=== PATIENT | female | born 1935 | race Asian ===

== ENCOUNTER 2022-01-13 04:10 | Inpatient (IN) | payer OTHER ==
[~2022-01-13] VITALS: Ht 162.6 cm; Wt 58.1 kg
[2022-01-13 04:18] VITALS: BP 170/90
--- NOTE | 2022-01-13 04:18 | NUR ---
PT TAKEN TO 1 VIA JJ
--- NOTE | 2022-01-13 04:50 | NUR ---
Attempted to contact Greek credit relationship manager on IPAD, but informed by IPAD tractor trailer operator that Greek credit relationship manager was "not available." AM shift nurse Zeke RN stated he "will attempt to contact Greek credit relationship manager with IPAD for ER Physician."
[2022-01-13] MEDS: hydrALAZINE 20 MG/ML VIAL IM ONE (04:59)
[2022-01-13 05:19] LABS: BASOPHILS % (AUTO) 0.7 % (0.0-2.0); EOSINOPHILS # (AUTO) 0.1 K/uL (0-0.4); EOSINOPHILS % (AUTO) 1.2 % (0.0-4.0); HEMATOCRIT 40.9 % (36-48); HEMOGLOBIN 13.5 g/dL (12.0-16.0); LYMPHOCYTES # (AUTO) 1.2 K/uL (2.5-16.5); LYMPHOCYTES % (AUTO) 20.7 % (20.5-51.1); MEAN CORPUSCULAR HEMOGLOBIN 32 pg (27-31); MEAN CORPUSCULAR HGB CONC 33 g/dL (33-37); MEAN CORPUSCULAR VOLUME 95.7 fL (80-94); MONOCYTES # (AUTO) 0.4 K/uL (0.8-1.0); MONOCYTES % (AUTO) 7.5 % (1.7-9.3); NEUTROPHILS # (AUTO) 4.2 K/uL (1.8-7.7); NEUTROPHILS % (AUTO) 69.9 % (42.2-75.2); PLATELET COUNT (AUTO) 218 K/uL (140-450); RED BLOOD CELL COUNT(AUTO) 4.28 MIL/uL (4.20-5.40); RED CELL DISTRIBUTION WIDTH 13.5 % (11.6-13.7); WHITE BLOOD COUNT (AUTO) 5.9 K/uL (4.8-10.8)
--- NOTE | 2022-01-13 07:17 | NUR ---
Change of shift report given to AM shift nurse Zeke JUAREZ. AM shift nurse Zeke JUAREZ verbalized understanding of report, no further questions.
--- NOTE | 2022-01-13 07:32 | NUR ---
received report from killian modi. pt calm and resting. vital stable.
--- NOTE | 2022-01-13 07:59 | NUR ---
xr at bedside
[2022-01-13 08:07] LABS: ALBUMIN 4.4 g/dL (3.4-5.0); ANION GAP 18.3 (8-16); ASPARTATE AMINOTRANSFERASE 35 U/L (15-37); CARBON DIOXIDE 25.2 mmol/L (21-32); CHLORIDE 101 mmol/L (98-107); CREATININE 0.8 mg/dL (0.6-1.3); GLUCOSE 115 mg/dL (74-106); POTASSIUM 4.5 mmol/L (3.5-5.1); SODIUM SERUM 140 mmol/L (136-145); TOTAL BILIRUBIN 0.6 mg/dL (0.0-1.0); UREA NITROGEN, BLOOD 37 mg/dL (7-18)
--- NOTE | 2022-01-13 08:15 | NUR ---
princess collected and sent to lab
[2022-01-13 08:51] LABS: APPEARANCE,URINE HAZY (CLEAR); BILIRUBIN,URINE NEGATIVE (NEGATIVE); BLOOD, URINE NEGATIVE (NEGATIVE); COLOR,URINE AMBER (YELLOW); LEUKOCYTE ESTERASE ,URINE 1+ (NEGATIVE); NITRITE, URINE NEGATIVE (NEGATIVE); UGLUCOSE NEGATIVE (NEGATIVE)
[2022-01-13] MEDS ORDERED: ATOR20TA PO (09:08)
[2022-01-13] MEDS ORDERED: ROC.25 PO (09:08)
[2022-01-13] MEDS ORDERED: CARB1TAB40 PO ×2 (09:08)
[2022-01-13] MEDS ORDERED: RASA0.5T PO (09:14)
[2022-01-13] MEDS ORDERED: ATI.5 PO (09:14)
[2022-01-13] MEDS ORDERED: PANT40EC PO (09:14)
[2022-01-13] MEDS ORDERED: ZINC100T8 PO (09:14)
[2022-01-13] MEDS ORDERED: SENN-72 PO (09:14)
[2022-01-13] MEDS ORDERED: LISI5TAB18 PO (09:14)
[2022-01-13] MEDS ORDERED: SIME80TA22 PO (09:14)
[2022-01-13] MEDS ORDERED: DOCU-2 PO (09:14)
[2022-01-13] MEDS ORDERED: LEVO25CA2 PO (09:14)
[2022-01-13] MEDS ORDERED: HYD2.5O TP (09:14)
[2022-01-13 09:24] LABS: RBC,URINE 0-5 /HPF (0-5)
[2022-01-13] MEDS ORDERED: cefTRIAXone 1,000 MG VIAL ONE (09:24)
[2022-01-13 09:26] LABS: OTHER CASTS, URINE None Seen /LPF (None Seen)
[2022-01-13] MEDS ORDERED: ZOLPIDEM 5 MG TAB PO PRN (09:30)
[2022-01-13] MEDS ORDERED: ONDANSETRON 4 MG/2 ML VIAL IM/IVP PRN (09:30)
[2022-01-13] MEDS ORDERED: guaiFENesin DM 200/20 MG-10 ML 10 ML UDC PO PRN (09:30)
[2022-01-13] MEDS ORDERED: NITROGLYCERIN 0.4 MG TAB SL PRN (09:30)
[2022-01-13] MEDS ORDERED: POTASSIUM CHLORIDE 10 MEQ TABER PO PRN (09:30)
[2022-01-13] MEDS ORDERED: DOCUSATE SODIUM 100 MG GELCAP PO PRN (09:30)
[2022-01-13] MEDS ORDERED: ACETAMINOPHEN 325 MG TAB PO PRN (09:30)
[2022-01-13] MEDS: NACL 0.9% 1,000 ML IV SCH (09:36)
--- NOTE | 2022-01-13 09:43 | NUR ---
[facility] CALLED. PER JAX, PT IS A RESIDENCE AT [facility] NURSE VISITS THE FACILITY FOR HOSPICE CARE AT [facility]. CONTACT INFO FOR VIC [facility]ARA: [phone]
[2022-01-13 10:33] LABS: CHOL/HDL RATIO 2.6 (1-4.5); FREE T4 (FREE THYROXINE) 1.16 ng/dL (0.76-1.46); MAGNESIUM 2.4 mg/dL (1.8-2.4); PHOSPHORUS 4.3 mg/dL (2.5-4.9); THYROID STIMULATING HORMONE 1.96 uIU/mL (0.34-3.74)
[2022-01-13 10:43] LABS: PROTHROMBIN TIME 10.1 secs (10.8-13.4)
--- NOTE | 2022-01-13 12:02 | NUR ---
MEAL PROVIDED TO PATIENT. PATIENT TOLERATING PO WELL.
[2022-01-13] MEDS ORDERED: LEVODOPA PO SCH (13:00)
[2022-01-13] MEDS ORDERED: CARBIDOPA PO SCH (13:00)
[2022-01-13] MEDS: CARBIDOPA/LEVODOPA 25/250 MG 1 TAB PO SCH (14:09)
--- NOTE | 2022-01-13 18:48 | NUR ---
meal provided to patient. pt refused to eat at this time. tray placed near bedside
--- NOTE | 2022-01-13 22:05 | NUR ---
CRITICAL LAB FOR LACTIC ACID ENTERED WAS UNDON
--- NOTE | 2022-01-14 | NUR ---
Patient appears to be resting comfortably in bed. Vital Signs within normal limits. Respirations even and unlabored.
--- NOTE | 2022-01-14 02:00 | NUR ---
Patient appears to be resting comfortably in bed. Vital Signs within normal limits. Respirations even and unlabored.
--- NOTE | 2022-01-14 03:10 | NUR ---
REPORT RECIEVED FROM GREG JUAREZ
[2022-01-14] MEDS: NACL 0.9% 1,000 ML IV SCH ×2 (03:26→12:00)
[2022-01-14] MEDS: CARBIDOPA/LEVODOPA 25/250 MG 1 TAB PO SCH ×4 (05:00→22:00)
--- NOTE | 2022-01-14 05:26 | NUR ---
SINEMENT NOT AVAIL IN DEPT OR HOUSE ; WAS NOTIFED AND NO RESPONSE BACK
--- NOTE | 2022-01-14 06:00 | NUR ---
LAB AT BEDSIDE AM LABS. PT IN BED ON BEDSIDE MONITOR. SIDE RAILS UP X2. BED AT LOWEST POSITION
[2022-01-14 07:08] LABS: T4 (THYROXINE) 7.7 ug/dL (4.5-12.0)
--- NOTE | 2022-01-14 07:08 | NUR ---
PT RESTING IN BED RESP EVEN AND UNLABORED
[2022-01-14 07:12] LABS: BASOPHILS % (AUTO) 0.4 % (0.0-2.0); EOSINOPHILS # (AUTO) 0.1 K/uL (0-0.4); EOSINOPHILS % (AUTO) 1.2 % (0.0-4.0); HEMATOCRIT 41.4 % (36-48); HEMOGLOBIN 13.4 g/dL (12.0-16.0); LYMPHOCYTES # (AUTO) 1.6 K/uL (2.5-16.5); LYMPHOCYTES % (AUTO) 24.6 % (20.5-51.1); MEAN CORPUSCULAR HEMOGLOBIN 31 pg (27-31); MEAN CORPUSCULAR HGB CONC 32 g/dL (33-37); MEAN CORPUSCULAR VOLUME 96.6 fL (80-94); MONOCYTES # (AUTO) 0.9 K/uL (0.8-1.0); MONOCYTES % (AUTO) 13.5 % (1.7-9.3); NEUTROPHILS % (AUTO) 60.3 % (42.2-75.2); PLATELET COUNT (AUTO) 224 K/uL (140-450); RED BLOOD CELL COUNT(AUTO) 4.29 MIL/uL (4.20-5.40); RED CELL DISTRIBUTION WIDTH 13.8 % (11.6-13.7); WHITE BLOOD COUNT (AUTO) 6.6 K/uL (4.8-10.8)
--- NOTE | 2022-01-14 07:21 | NUR ---
PT CALM AND SLEEPING. VITALS STABLE
[2022-01-14 07:31] LABS: ANION GAP 12.4 (8-16); CARBON DIOXIDE 29.1 mmol/L (21-32); CHLORIDE 110 mmol/L (98-107); CREATININE 0.5 mg/dL (0.6-1.3); GLUCOSE 94 mg/dL (74-106); POTASSIUM 4.5 mmol/L (3.5-5.1); SODIUM SERUM 147 mmol/L (136-145); UREA NITROGEN, BLOOD 14 mg/dL (7-18)
[2022-01-14] MEDS ORDERED: ATORVASTATIN 20 MG TAB PO SCH (09:00)
[2022-01-14] MEDS ORDERED: cefTRIAXone 1,000 MG VIAL ONE (09:06)
[2022-01-14] MEDS: lisinopriL 5 MG TAB PO SCH (09:07)
[2022-01-14] MEDS: PANTOPRAZOLE 40 MG TABEC PO SCH (09:07)
--- NOTE | 2022-01-14 09:24 | NUR ---
PT BP 76/34. PT STILL REFUSING TO EAT. REPEAT BP CONSISTENTLY LOW. DR PUCKETT NOTIFIED. ON ROOM AIR, NSR, DENIES ANY PAIN. PT IS SLEEPING BUT AROUSABLE TO VOICE
[2022-01-14] MEDS ORDERED: NACL 0.9% 2,000 ML IV ONE (09:35)
--- NOTE | 2022-01-14 11:10 | NUR ---
PATIENT HAS BEEN SCREENED AND CATEGORIZED HIGH NUTRITION RISK. PATIENT WILL BE SEEN WITHIN 1-2 DAYS OF ADMISSION. 01/14/[address]
--- NOTE | 2022-01-14 11:35 | NUR ---
PT SLEEPING. VSS
[2022-01-14] MEDS: hydrALAZINE 20 MG/ML VIAL IVP PRN ×2 (12:06→22:12)
--- NOTE | 2022-01-14 12:11 | NUR ---
MEAL PROVIDED. PT REQUEST TO EAT LATER
--- NOTE | 2022-01-14 14:52 | NUR ---
PT ATE TOMATO SOUP
--- NOTE | 2022-01-14 15:58 | NUR ---
01/14/22 RD FOLLOW UP COMPLETED PLEASE REFER TO NUTRITION ASSESSMENT UNDER CARE ACTIVITY FOR ESTIMATED NUTRITIONAL NEEDS. 1. CONTINUE REGULAR PUREE DIET TOLERATED 2. RECOMMEND ENSURE BID FOR NUTRITION SUPPORT 3. MONITOR PO INTAKE 4. RD TO FOLLOW-UP 2-3 DAYS, HIGH RISK CELIA HERNADEZ RD
--- NOTE | 2022-01-14 16:27 | NUR ---
PT GIVEN PHONE.
--- NOTE | 2022-01-14 18:09 | NUR ---
patient eating meal
--- NOTE | 2022-01-14 19:20 | NUR ---
recieved transfer report from rian arreola
--- NOTE | 2022-01-14 20:14 | NUR ---
Patient will be admitted to care of DR PUCKETT. Admited to ICU. Will go to room 2. Belongings list completed. Report to ANN RODARTE.
[2022-01-14] MEDS: HYDROcodone/APAP 7.5/325 MG 1 TAB PO PRN (22:00)
[2022-01-14 22:10] VITALS: BP 187/101
[2022-01-14 22:50] VITALS: BP 187/101
[2022-01-15] VITALS (8 sets, daily range): BP systolic 109–187; BP diastolic 78–96
--- NOTE | 2022-01-15 02:00 | NUR ---
PT AWAKENED IN A VERY CONFUSED STATE OF MIND. SHE IS PULLING AT HER IVACCESS AND FIGHTING THE NURSE TO PREVENT HER SALVAGING THE IV. FINALLY SUBDUED WITH THE ASSISTANCE OF A SECOND RN. SITE RETAPED AND KERLIX WRAPPED TO PREVENT A REOCCURRENCE. A MITTEN WAS APPLIED TO THE LEFT HAND. S/P IV STRUGGLE PT BEGAN TO COMPLAIN OF PAIN. SHE CLEARLY STATED THE PAIN LEVEL WAS 6 AND IT'S IN HER NECK AGAIN.NORCO7.5MG GIVEN IN APPLESAUCE
[2022-01-15] MEDS: HYDROcodone/APAP 7.5/325 MG 1 TAB PO PRN ×2 (02:56→10:29)
--- NOTE | 2022-01-15 04:15 | NUR ---
BLOOD PRESSURE UP AGAIN SYS WAS 179, RECYCLED UP TO 183/100. A SECOND DOSE OF APRESOLINE 10 MG GIVEN. THE RESPONSE WAS POSITIVE. THE BP IS NOW 148/82. SHE ALSO HAD THE NORCO HER PAIN IS CONTROLLED AT THIS TIME ANS SHE'S ASLEEP.
[2022-01-15] MEDS: hydrALAZINE 20 MG/ML VIAL IVP PRN ×2 (04:20→09:52)
[2022-01-15 06:09] LABS: BASOPHILS % (AUTO) 0.6 % (0.0-2.0); EOSINOPHILS # (AUTO) 0.3 K/uL (0-0.4); HEMATOCRIT 39.9 % (36-48); HEMOGLOBIN 13.4 g/dL (12.0-16.0); LYMPHOCYTES # (AUTO) 1.7 K/uL (2.5-16.5); MEAN CORPUSCULAR HEMOGLOBIN 32 pg (27-31); MEAN CORPUSCULAR HGB CONC 34 g/dL (33-37); MEAN CORPUSCULAR VOLUME 96.2 fL (80-94); MONOCYTES # (AUTO) 0.6 K/uL (0.8-1.0); MONOCYTES % (AUTO) 7.5 % (1.7-9.3); NEUTROPHILS # (AUTO) 4.8 K/uL (1.8-7.7); NEUTROPHILS % (AUTO) 64.9 % (42.2-75.2); PLATELET COUNT (AUTO) 283 K/uL (140-450); RED BLOOD CELL COUNT(AUTO) 4.15 MIL/uL (4.20-5.40); RED CELL DISTRIBUTION WIDTH 13.8 % (11.6-13.7); WHITE BLOOD COUNT (AUTO) 7.4 K/uL (4.8-10.8)
[2022-01-15 07:04] LABS: ANION GAP 11.8 (8-16); CARBON DIOXIDE 27.6 mmol/L (21-32); CHLORIDE 107 mmol/L (98-107); CREATININE 0.5 mg/dL (0.6-1.3); GLUCOSE 100 mg/dL (74-106); POTASSIUM 3.4 mmol/L (3.5-5.1); SODIUM SERUM 143 mmol/L (136-145); UREA NITROGEN, BLOOD 9 mg/dL (7-18)
--- NOTE | 2022-01-15 07:30 | NUR ---
REPORT RECEIVED FROM ARMORED MACHINE OPERATOR MILIEU THERAPIST.
--- NOTE | 2022-01-15 08:30 | NUR ---
PATIENT OPENS EYES TO VERBAL STIMULI. ORIENTED TO PERSON. MOVES ALL EXTREMITIES. VSS. HEART SOUNDS REGULAR. MONITOR SR-ST. RIGHT ARM IV INFILTRATED, DC'D. #24G IV PLACED IN RIGHT WRIST. IV NS AT 60CC/HR. ANTERIOR LATERAL BREATH SOUNDS DIMINISHED AT BILATERAL BASES. SAO2 96% ON RA. HYPOACTIVE BOWEL SOUNDS. ABDOMEN SOFT. INCONTINENT OF URINE.
--- NOTE | 2022-01-15 08:47 | NUR ---
PT. WITH LOW NISHI SCALE AT MODERATE TO HIGH RISK, CONTINUE TO FOLLOW PRESSURE INJURY PREVENTION INTERVENTIONS. -POSITIONING: TURN AND REPOSITION PATIENT Q 2H OR SOONER USE PILLOWS TO KEEP BONY PROMINENCES FROM DIRECT CONTACT WITH SURFACES USE REPOSITIONING WEDGES TO PROVIDE 30-DEGREE ANGLE FOR SIDE LYING POSITIONS OFFLOADING OR FOAM DRESSING TO ALL TUBING TO PREVENT MEDICAL DEVICES RELATED PRESSURE INJURY -RE-EVALUATING AND MANAGING INCONTINENCE MONITOR SKIN CONDITION DURING POSITION CHANGE DO NOT MASSAGE REDNESS, BONY PROMINENCES FREQUENT RINA-CARE AND PROVIDE BARRIER CREAMS PRN IF SOILING MOISTURE CONTROL BY OFFER BED SIM/URINAL /ABSORBENT PAD TO WICK AND HOLD MOISTURE KEEP SKIN DRY AND PROTECT FROM FRICTION -MANAGE FRICTION/SHEAR/MOBILITY KEEP HOB AT THE LOWEST LEVEL OF ELEVATION NO MORE THAN 30 DEGREE UNLESS OTHERWISE CONTRAINDICATED USE LIFT SHEET OR TRANSFER DEVICE TO MOVE PATIENT AND PREVENT LATERAL SHEER. PROTECT HEELS, ELBOWS BONY PROMINENCES WITH SKIN BERRIES OR FOAM DRESSING IF EXPOSED TO FRICTION OFFLOAD BILATERAL HEELS BY PLACING PILLOWS UNDER CALVES AT ALL TIMES, UNLESS OTHERWISE CONTRAINDICATED -PRESSURE REDISTRIBUTION SURFACE THERAPY LUZ ISOFLEX MATTRESS -NUTRITION: PLEASE FOLLOW RD RECOMMENDATIONS AND OFFER NUTRITION SUPPLEMENTS IF ORDERED. PLEASE CONTACT WOUND CARE NURSE FOR ANY QUESTION AND CHANGE OF WOUND CONDITION.
[2022-01-15] MEDS: PANTOPRAZOLE 40 MG TABEC PO SCH (09:00)
[2022-01-15] MEDS: lisinopriL 5 MG TAB PO SCH (09:00)
[2022-01-15] MEDS: CARBIDOPA/LEVODOPA 25/250 MG 1 TAB PO SCH ×2 (09:46→13:15)
--- NOTE | 2022-01-15 10:30 | NUR ---
NORCO 1 TAB GIVEN FOR COMPLAINT OF NECK PAIN.
--- NOTE | 2022-01-15 11:15 | NUR ---
REPORT GIVEN TO ANN FRANCOIS ON MST. PATIENT TRANSFERRED BY BED.
--- NOTE | 2022-01-15 11:30 | NUR ---
RECEIVED REPORT FROM [employer]RE[facility] CADET. PT A/O X1 TO NAME ONLY. CONFUSED. HOB ELEVATED. NO SOB OR RESPIRATORY DISTRESS. ON RA. DENIES PAIN AT THIS TIME. NS @ 60 ML/HR ON R WRIST #24. ON PUREED, FEEDER. NEEDS ALL MET AT THIS TIME. PLAN TO TRANSFER TO [facility]. SAFETY MEASURES IN PLACE.
[2022-01-15] MEDS ORDERED: SULF-954 PO (11:43)
[2022-01-15] MEDS ORDERED: POTASSIUM CHLORIDE 40 MEQ, LIDOCAINE MPF 1% 25 MG in NACL 0.9% 250 ML IV ONE (12:00)
[2022-01-15] MEDS: NACL 0.9% 1,000 ML IV SCH (12:08)
--- NOTE | 2022-01-15 14:00 | NUR ---
SPOKE WITH CASE MANAGEMENT RINA AND STATES PT IS TRANSPORTING BACK TO [facility] AND STATES [facility] WILL SETUP TRANSPORTATION. SPOKE WITH LINDA FROM [facility] AND HE STATES THEY DO NOT PROVIDE TRANSPORTATION AFTER 1300. CONTACTED CM AND TOLD TO CALL [facility]. CALLED [facility] AND THEY STATED TO CALL BACK. WILL FOLLOWUP.
--- NOTE | 2022-01-15 14:05 | NUR ---
REPORT GIVEN TO LINDA FROM [facility]. Addendum: 01/15/22 at 1843 by Agency Wilber JUAREZ RN REPORT GIVEN TO LINDA FROM [facility]
--- NOTE | 2022-01-15 15:55 | NUR ---
PT TRYING TO GET OUT OF BED. EXPLAINED TO PT TO STAY IN BED. AND ASSISTED BACK IN BED. PT WITH WET CHUCKS. PT CHANGED AND REPOSITIONED. PT DENIES PAIN. NO SOB NOTED. NEEDS ALL MET AT THIS TIME. SAFETY MEASURES IN PLACE. SIDE RAILS UP X3 FOR SAFETY. CONTACTED TRANSPORTATION AND STATES PICKUP IS AT 1830.
--- NOTE | 2022-01-15 18:00 | NUR ---
CONTACTED [facility] AND THEY STATE THEY ARE ON THEIR WAY. AWAITING TRANSPORTATION.
--- NOTE | 2022-01-15 18:44 | NUR ---
IV DISCONTINUED, CATHETER INTACT, NO ACTIVE BLEEDING. DISCHARGE INSTRUCTIONS GIVEN TO SON (JAX) AND VERBALIZED UNDERSTANDING. PT WITH DINNER AT BEDSIDE. ABLE TO SELF-FEED WITH MINIMAL ASSISTANCE. AWAITING TRANSPORTATION.
--- NOTE | 2022-01-15 19:05 | NUR ---
PT TRANSPORTED OUT VIA [facility].
== END 2022-01-15 18:05 | DRG 872 ==
LOC: MED 04:10 → MTU 09:46 → MIC 01-14 19:02 → MTU 01-15 11:37
PROVIDERS: ADMIT Family Medicine; ATTEND Family Medicine
DX: A41.9 Sepsis, unspecified organism (principal); N39.0 Urinary tract infection, site not specified; I16.1 Hypertensive emergency; G20 Parkinson's disease; Z66 Do not resuscitate; F02.80 Dementia in other diseases classified elsewhere, unspecified severity, without behavioral disturbance, psychotic disturbance, mood disturbance, and anxiety; E03.9 Hypothyroidism, unspecified; I10 Essential (primary) hypertension; Z20.822 Contact with and (suspected) exposure to COVID-19; Z51.5 Encounter for palliative care; R07.89 Other chest pain
CPT/HCPCS: 36415; 71045; 80048; 80053; 81001; 82150; 83036; 83605; 83690; 83735; 84100; 84436; 84439; 84443; 84479; 84484; 85025; 85610; 85730; 87040; 87081; 87086; 93005; 96365; 96375; 97163-GP; 97530; 99285; J0360; J0696; J2001; J3480; J7030; J7060

== ENCOUNTER 2022-04-23 03:45 | Emergency (ER) | payer OTHER ==
[~2022-04-23] VITALS: Ht 160 cm; Wt 56.7 kg
[~2022-04-23 03:45] MED LIST: ATI.5 PO; ATOR20TA PO; CARB1TAB40 PO; DOCU-2 PO; HYD2.5O TP; LEVO25CA2 PO; LISI5TAB18 PO; PANT40EC PO; RASA0.5T PO; ROC.25 PO; SENN-72 PO; SIME80TA22 PO; SULF-954 PO; ZINC100T8 PO
[2022-04-23 03:49] VITALS: BP 138/98
--- NOTE | 2022-04-23 03:49 | NUR ---
PT CONCHA PALMER. TAKEN TO BED 12
--- NOTE | 2022-04-23 04:10 | NUR ---
ASSUME CARE OF PT AT THIS TIME BY GABY RN, PT BIB FOR CP AND THROAT PAIN, CALLED [facility] AND SPOKE TO [employer], SHE STATED PT WAS C/O CP AND THROAT PAIN, PT WAS HAVING DIFFICULTY BREATHING AND ON HOSPICE, PT WAS GIVEN TYLENOL FOR PAIN BY STAFF BUT DID NOT RESOLVE PAIN AND CALLED 911. PT ON DEATH CLAIM EXAMINER, EKG COMPLETE AND GIVEN TO DR TUCKER.
[2022-04-23] MEDS ORDERED: NACL 0.9% 1,500 ML IV ONE (04:40)
--- NOTE | 2022-04-23 05:18 | NUR ---
PT TAKEN TO CT
[2022-04-23] MEDS ORDERED: ACET-2619 PO (05:24)
[2022-04-23] MEDS ORDERED: PROC-62 PO (05:24)
[2022-04-23] MEDS ORDERED: POLY17PD65 PO (05:24)
[2022-04-23] MEDS ORDERED: IBUP-1842 PO (05:24)
[2022-04-23] MEDS ORDERED: HYOS-83 PO (05:24)
[2022-04-23] MEDS ORDERED: NORCO PO (05:24)
[2022-04-23 05:26] LABS: BASOPHILS % (AUTO) 0.7 % (0.0-2.0); EOSINOPHILS # (AUTO) 0.1 K/uL (0-0.4); EOSINOPHILS % (AUTO) 1.4 % (0.0-4.0); HEMOGLOBIN 12.4 g/dL (12.0-16.0); LYMPHOCYTES # (AUTO) 1.1 K/uL (2.5-16.5); LYMPHOCYTES % (AUTO) 18.1 % (20.5-51.1); MEAN CORPUSCULAR HEMOGLOBIN 32 pg (27-31); MEAN CORPUSCULAR HGB CONC 34 g/dL (33-37); MONOCYTES # (AUTO) 0.5 K/uL (0.8-1.0); MONOCYTES % (AUTO) 8.3 % (1.7-9.3); NEUTROPHILS # (AUTO) 4.2 K/uL (1.8-7.7); NEUTROPHILS % (AUTO) 71.5 % (42.2-75.2); PLATELET COUNT (AUTO) 223 K/uL (140-450); RED BLOOD CELL COUNT(AUTO) 3.94 MIL/uL (4.20-5.40); RED CELL DISTRIBUTION WIDTH 13.6 % (11.6-13.7); WHITE BLOOD COUNT (AUTO) 5.9 K/uL (4.8-10.8)
[2022-04-23] MEDS ORDERED: cefTRIAXone 1,000 MG VIAL ONE (05:57)
[2022-04-23] MEDS ORDERED: hydrALAZINE 20 MG/ML VIAL IM ONE (06:00)
[2022-04-23 06:11] LABS: ALBUMIN 3.5 g/dL (3.4-5.0); ANION GAP 11.3 (8-16); ASPARTATE AMINOTRANSFERASE 24 U/L (15-37); CARBON DIOXIDE 30.2 mmol/L (21-32); CHLORIDE 103 mmol/L (98-107); CREATININE 0.7 mg/dL (0.6-1.3); GLUCOSE 106 mg/dL (74-106); POTASSIUM 3.5 mmol/L (3.5-5.1); SODIUM SERUM 141 mmol/L (136-145); TOTAL BILIRUBIN 0.4 mg/dL (0.0-1.0); UREA NITROGEN, BLOOD 19 mg/dL (7-18)
--- NOTE | 2022-04-23 06:11 | NUR ---
Dr. Iyer examining patient.
--- NOTE | 2022-04-23 06:30 | NUR ---
# 10 FR Capps catheter inserted utilizing sterile technique. Immediate return of 10 ml yellow urine noted. straight catheter removed. Urine sample collected and sent to lab. Pt tolerated procedure well.
--- NOTE | 2022-04-23 07:15 | NUR ---
Pt report given to JESUS ALBERTO JUAREZ. Transfer of care at this time.
--- NOTE | 2022-04-23 07:15 | NUR ---
RECEIVED REPORT FROM ANN GRIFFIN. ASSUMED CARE AT THIS TIME.
[2022-04-23 07:29] LABS: APPEARANCE,URINE CLEAR (CLEAR); BILIRUBIN,URINE NEGATIVE (NEGATIVE); BLOOD, URINE NEGATIVE (NEGATIVE); COLOR,URINE YELLOW (YELLOW); LEUKOCYTE ESTERASE ,URINE NEGATIVE (NEGATIVE); NITRITE, URINE NEGATIVE (NEGATIVE); PH,URINE 6.5 (5.0-9.0); UGLUCOSE NEGATIVE (NEGATIVE)
--- NOTE | 2022-04-23 10:55 | NUR ---
REPORT GIVEN [facility] TRCAY
--- NOTE | 2022-04-23 10:56 | NUR ---
IV removed, catheter intact and site benign. Applied folded 4x4 gauze and tape to stop bleeding.
[2022-04-23 10:57] VITALS: BP 172/90
--- NOTE | 2022-04-23 10:57 | NUR ---
Patient discharged with v/s stable. Written and verbal after care instructions ABOUT DYSPHAGIA given and explained. Wheel Chair Assisted with to car. All questions addressed prior to discharge. Advised to follow up with PMD.
== END 2022-04-23 10:57 ==
LOC: MED 03:45
DX: R13.10 Dysphagia, unspecified (principal); Z20.822 Contact with and (suspected) exposure to COVID-19; I10 Essential (primary) hypertension; E11.9 Type 2 diabetes mellitus without complications; E03.9 Hypothyroidism, unspecified; G20 Parkinson's disease; F02.80 Dementia in other diseases classified elsewhere, unspecified severity, without behavioral disturbance, psychotic disturbance, mood disturbance, and anxiety; Z79.4 Long term (current) use of insulin; Z79.899 Other long term (current) drug therapy
CPT/HCPCS: 36415; 70490; 71045; 80053; 81003; 83605; 83880; 84484; 85025; 87040; 87086; 87426; 93005; 96365; 96372; 99285; J0360; J0696; Q0092

== ENCOUNTER 2022-09-25 20:24 | Emergency (ER) | payer OTHER ==
[~2022-09-25] VITALS: Ht 157.5 cm; Wt 59.0 kg
[2022-09-25 20:24] VITALS: BP 160/62
[~2022-09-25 20:24] MED LIST changes: +ACET-2619 PO; +HYOS-83 PO; +IBUP-1842 PO; +NORCO PO; +POLY17PD65 PO; +PROC-87 PO; -SIME80TA22 PO; +SIME80TA41 PO
--- NOTE | 2022-09-25 20:25 | NUR ---
BIBA TO BED #9
--- NOTE | 2022-09-25 20:25 | NUR ---
RECEIVED IN BED 9 , [facility] FROM [facility] WITH C/O ALOC, POSSIBLE SYNCOPE AFTER BEING FOUND IN CHAIR, UNRESPONSIVE. ON SCENE, PT WAS HYPOTENSIVE WITH BP 69/42 AND 93/59. PT HAS H/O PARKINSONS, SD, HTN, THYROID. PTS GCS IS 14 WHICH IS BACK TO PTS BASELINE. PT IS PRIMARILY NEPALI SPEAKING. ATTACHED TO CM = SR WITHOUT ECTOPY. PT IS DNR
[2022-09-25] MEDS ORDERED: NACL 0.9% 1,000 ML IV ONE (20:35)
--- NOTE | 2022-09-25 20:53 | NUR ---
EKG AND XRAY AT BEDSIDE
[2022-09-25 20:55] LABS: BASOPHILS % (AUTO) 0.4 % (0.0-2.0); EOSINOPHILS # (AUTO) 0.1 K/uL (0-0.4); EOSINOPHILS % (AUTO) 1.1 % (0.0-4.0); HEMATOCRIT 39.3 % (36-48); LYMPHOCYTES # (AUTO) 0.7 K/uL (2.5-16.5); LYMPHOCYTES % (AUTO) 12.6 % (20.5-51.1); MEAN CORPUSCULAR HEMOGLOBIN 32 pg (27-31); MEAN CORPUSCULAR HGB CONC 33 g/dL (33-37); MEAN CORPUSCULAR VOLUME 95.3 fL (80-94); MONOCYTES # (AUTO) 0.4 K/uL (0.8-1.0); MONOCYTES % (AUTO) 6.8 % (1.7-9.3); NEUTROPHILS # (AUTO) 4.1 K/uL (1.8-7.7); NEUTROPHILS % (AUTO) 79.1 % (42.2-75.2); PLATELET COUNT (AUTO) 213 K/uL (140-450); RED BLOOD CELL COUNT(AUTO) 4.12 MIL/uL (4.20-5.40); RED CELL DISTRIBUTION WIDTH 14.2 % (11.6-13.7); WHITE BLOOD COUNT (AUTO) 5.2 K/uL (4.8-10.8)
--- NOTE | 2022-09-25 20:58 | NUR ---
PT TO CT
[2022-09-25 21:23] LABS: ALBUMIN 3.7 g/dL (3.4-5.0); ASPARTATE AMINOTRANSFERASE 64 U/L (15-37); CARBON DIOXIDE 30.5 mmol/L (21-32); CHLORIDE 104 mmol/L (98-107); CREATININE 0.8 mg/dL (0.6-1.3); GLUCOSE 191 mg/dL (74-106); POTASSIUM 4.5 mmol/L (3.5-5.1); SODIUM SERUM 139 mmol/L (136-145); TOTAL BILIRUBIN 0.7 mg/dL (0.0-1.0); UREA NITROGEN, BLOOD 24 mg/dL (7-18)
[2022-09-25 21:27] LABS: PROTHROMBIN TIME 9.9 secs (10.8-13.4)
--- NOTE | 2022-09-25 22:28 | NUR ---
PT ON BEDSIDE CERTIFIED [employer]. HOB ELEVATED. INDONESIAN IS LIMITED. RESP EVEN AND UNLABORED. SKIN IS COOL AND DRY AND INTACT. PT IS FROM [facility].
--- NOTE | 2022-09-25 23:00 | NUR ---
STRAIGHT CATHED WITH RETURN OF MINUTE AMOUNT OF URINE. DIAPER WAS CHANGED WHICH WAS SATURATED WITH URINE
--- NOTE | 2022-09-25 23:42 | NUR ---
PT IS READY FOR DISCHARGE
--- NOTE | 2022-09-25 23:55 | NUR ---
REPORT CALLED TO CHRISTINA LOWERY
[2022-09-26 00:05] VITALS: BP 160/62
--- NOTE | 2022-09-26 00:05 | NUR ---
Patient discharged with v/s stable. Written and verbal after care instructions given and explained. Patient verbalized understanding. Wheel Chair Assisted with steady gait. All questions addressed prior to discharge. Advised to follow up with PMD.
== END 2022-09-26 00:05 | disposition home or self-care (01) ==
LOC: MED 20:24
DX: R41.82 Altered mental status, unspecified (principal); I10 Essential (primary) hypertension; E11.9 Type 2 diabetes mellitus without complications; E03.9 Hypothyroidism, unspecified; F03.90 Unspecified dementia, unspecified severity, without behavioral disturbance, psychotic disturbance, mood disturbance, and anxiety; Z79.4 Long term (current) use of insulin; Z79.899 Other long term (current) drug therapy
CPT/HCPCS: 36415; 70450; 71045; 80053; 83605; 83880; 84484; 85025; 85610; 85730; 93005; 96360; 99285; J7030; Q0092

== ENCOUNTER 2023-04-30 18:24 | Inpatient (IN) | payer OTHER ==
[~2023-04-30] VITALS: Ht 152.4 cm; Wt 54.4 kg
[2023-04-30 18:27] VITALS: BP 139/90; PULSE 99; RESP 18; TEMP 97.6; O2SAT 94
[2023-04-30 22:05] LABS: ANION GAP 9.2 (8-16); BASOPHILS % (AUTO) 0.3 % (0.0-2.0); CALCIUM 8.7 mg/dL (8.5-10.1); CARBON DIOXIDE 32.3 mmol/L (21-32); CHLORIDE 105 mmol/L (98-107); EOSINOPHILS % (AUTO) 0.3 % (0.0-4.0); GLUCOSE 112 mg/dL (74-106); HEMATOCRIT 37.7 % (36-48); HEMOGLOBIN 12.6 g/dL (12.0-16.0); LYMPHOCYTES # (AUTO) 0.9 K/uL (2.5-16.5); LYMPHOCYTES % (AUTO) 11.3 % (20.5-51.1); MEAN CORPUSCULAR HEMOGLOBIN 32 pg (27-31); MEAN CORPUSCULAR HGB CONC 34 g/dL (33-37); MEAN CORPUSCULAR VOLUME 94.8 fL (80-94); MONOCYTES # (AUTO) 0.5 K/uL (0.8-1.0); MONOCYTES % (AUTO) 6.1 % (1.7-9.3); NEUTROPHILS # (AUTO) 6.7 K/uL (1.8-7.7); PLATELET COUNT (AUTO) 209 K/uL (140-450); POTASSIUM 3.5 mmol/L (3.5-5.1); RED BLOOD CELL COUNT(AUTO) 3.98 MIL/uL (4.20-5.40); RED CELL DISTRIBUTION WIDTH 14.5 % (11.6-13.7); SODIUM SERUM 143 mmol/L (136-145); UREA NITROGEN, BLOOD 27 mg/dL (7-18); WHITE BLOOD COUNT (AUTO) 8.1 K/uL (4.8-10.8)
[2023-04-30] MEDS ORDERED: guaiFENesin DM 200/20 MG-10 ML 10 ML UDC PO PRN (23:00)
[2023-04-30] MEDS ORDERED: DOCUSATE SODIUM 100 MG GELCAP PO PRN (23:00)
[2023-04-30] MEDS ORDERED: ZOLPIDEM 5 MG TAB PO PRN (23:00)
[2023-04-30] MEDS ORDERED: ONDANSETRON 4 MG/2 ML VIAL IM/IVP PRN (23:00)
[2023-04-30] MEDS ORDERED: ACETAMINOPHEN 325 MG TAB PO PRN (23:00)
[2023-04-30] MEDS ORDERED: NACL 0.9% 1,000 ML IV SCH (23:00)
[2023-05-01] MEDS ORDERED: hydrALAZINE 20 MG/ML VIAL IVP ONE (04:55)
[2023-05-01 06:54] LABS: BASOPHILS % (AUTO) 0.2 % (0.0-2.0); EOSINOPHILS % (AUTO) 0.6 % (0.0-4.0); HEMATOCRIT 42.6 % (36-48); LYMPHOCYTES # (AUTO) 1.4 K/uL (2.5-16.5); LYMPHOCYTES % (AUTO) 19.3 % (20.5-51.1); MEAN CORPUSCULAR HEMOGLOBIN 31 pg (27-31); MEAN CORPUSCULAR HGB CONC 33 g/dL (33-37); MEAN CORPUSCULAR VOLUME 95.2 fL (80-94); MONOCYTES # (AUTO) 0.5 K/uL (0.8-1.0); MONOCYTES % (AUTO) 7.1 % (1.7-9.3); NEUTROPHILS # (AUTO) 5.1 K/uL (1.8-7.7); NEUTROPHILS % (AUTO) 72.8 % (42.2-75.2); PLATELET COUNT (AUTO) 223 K/uL (140-450); RED BLOOD CELL COUNT(AUTO) 4.47 MIL/uL (4.20-5.40); RED CELL DISTRIBUTION WIDTH 14.3 % (11.6-13.7)
[2023-05-01 07:44] LABS: ALANINE AMINOTRANSFERASE 32 U/L (12-78); ALBUMIN 3.5 g/dL (3.4-5.0); ALKALINE PHOSPHATASE 81 U/L (50-136); ANION GAP 9.6 (8-16); ASPARTATE AMINOTRANSFERASE 28 U/L (15-37); CALCIUM 8.6 mg/dL (8.5-10.1); CARBON DIOXIDE 31.7 mmol/L (21-32); CHLORIDE 105 mmol/L (98-107); CREATININE 0.7 mg/dL (0.6-1.3); GLUCOSE 105 mg/dL (74-106); POTASSIUM 3.3 mmol/L (3.5-5.1); SODIUM SERUM 143 mmol/L (136-145); TOTAL BILIRUBIN 0.5 mg/dL (0.0-1.0); TOTAL PROTEIN, SERUM 7.2 g/dL (6.4-8.2); UREA NITROGEN, BLOOD 25 mg/dL (7-18)
[2023-05-01] MEDS: DEXT 5% /NACL 0.9% 1,000 ML IV SCH (08:50)
[2023-05-01] MEDS: PANTOPRAZOLE 40 MG TABEC PO SCH (08:51)
[2023-05-01] MEDS: POTASSIUM CHLORIDE 10 MEQ TABER PO PRN (13:16)
[2023-05-01] MEDS: hydrALAZINE 20 MG/ML VIAL IVP PRN (13:18)
[2023-05-01 14:04] VITALS: RESP 18; O2SAT 96
[2023-05-01 14:26] VITALS: BP 127/67; PULSE 111; RESP 18; TEMP 97.7; O2SAT 100
[2023-05-01 16:26] VITALS: BP 114/62; PULSE 106; RESP 18; TEMP 97.7; O2SAT 100
[2023-05-01 16:28] VITALS: PULSE 117
[2023-05-01 20:00] VITALS: BP 142/81; PULSE 93; RESP 18; TEMP 98.1; O2SAT 100
[2023-05-01 21:27] VITALS: PULSE 93; RESP 18; O2SAT 100
[2023-05-02] VITALS (11 sets, daily range): BP systolic 120–172; BP diastolic 64–100; PULSE 78–112; RESP 18–20; TEMP 97.5–98.6; O2SAT 95–98
[2023-05-02] MEDS: hydrALAZINE 20 MG/ML VIAL IVP PRN ×2 (00:46→12:23)
[2023-05-02] MEDS: DEXT 5% /NACL 0.9% 1,000 ML IV SCH ×3 (00:53→17:27)
[2023-05-02] MEDS: HYDROcodone/APAP 7.5/325 MG 1 TAB PO PRN (02:07)
[2023-05-02 07:18] LABS: BASOPHILS % (AUTO) 0.2 % (0.0-2.0); EOSINOPHILS % (AUTO) 0.5 % (0.0-4.0); HEMATOCRIT 40.7 % (36-48); HEMOGLOBIN 13.4 g/dL (12.0-16.0); MEAN CORPUSCULAR HEMOGLOBIN 32 pg (27-31); MEAN CORPUSCULAR HGB CONC 33 g/dL (33-37); MEAN CORPUSCULAR VOLUME 95.9 fL (80-94); MONOCYTES # (AUTO) 0.5 K/uL (0.8-1.0); NEUTROPHILS # (AUTO) 4.5 K/uL (1.8-7.7); NEUTROPHILS % (AUTO) 74.3 % (42.2-75.2); PLATELET COUNT (AUTO) 226 K/uL (140-450); RED BLOOD CELL COUNT(AUTO) 4.24 MIL/uL (4.20-5.40); RED CELL DISTRIBUTION WIDTH 14.5 % (11.6-13.7); WHITE BLOOD COUNT (AUTO) 6.1 K/uL (4.8-10.8)
[2023-05-02 08:11] LABS: ALANINE AMINOTRANSFERASE 39 U/L (12-78); ALBUMIN 3.6 g/dL (3.4-5.0); ALKALINE PHOSPHATASE 73 U/L (50-136); ANION GAP 11.2 (8-16); ASPARTATE AMINOTRANSFERASE 19 U/L (15-37); CALCIUM 8.5 mg/dL (8.5-10.1); CARBON DIOXIDE 28.6 mmol/L (21-32); CHLORIDE 107 mmol/L (98-107); CREATININE 0.6 mg/dL (0.6-1.3); GLUCOSE 110 mg/dL (74-106); POTASSIUM 3.8 mmol/L (3.5-5.1); SODIUM SERUM 143 mmol/L (136-145); TOTAL BILIRUBIN 0.6 mg/dL (0.0-1.0); TOTAL PROTEIN, SERUM 7.9 g/dL (6.4-8.2); UREA NITROGEN, BLOOD 16 mg/dL (7-18)
[2023-05-02] MEDS: PANTOPRAZOLE 40 MG TABEC PO SCH (08:16)
[2023-05-03] MEDS: DEXT 5% /NACL 0.9% 1,000 ML IV SCH (00:52)
[2023-05-03 04:00] VITALS: BP 195/114; PULSE 91; RESP 17; TEMP 97.6; O2SAT 97
[2023-05-03] MEDS: hydrALAZINE 20 MG/ML VIAL IVP PRN ×2 (04:16→16:19)
[2023-05-03 06:52] LABS: BASOPHILS % (AUTO) 0.5 % (0.0-2.0); EOSINOPHILS % (AUTO) 0.5 % (0.0-4.0); HEMATOCRIT 39.9 % (36-48); HEMOGLOBIN 13.5 g/dL (12.0-16.0); LYMPHOCYTES # (AUTO) 0.7 K/uL (2.5-16.5); LYMPHOCYTES % (AUTO) 9.3 % (20.5-51.1); MEAN CORPUSCULAR HEMOGLOBIN 32 pg (27-31); MEAN CORPUSCULAR HGB CONC 34 g/dL (33-37); MEAN CORPUSCULAR VOLUME 95.5 fL (80-94); MONOCYTES # (AUTO) 0.5 K/uL (0.8-1.0); MONOCYTES % (AUTO) 6.7 % (1.7-9.3); NEUTROPHILS # (AUTO) 6.1 K/uL (1.8-7.7); PLATELET COUNT (AUTO) 223 K/uL (140-450); RED BLOOD CELL COUNT(AUTO) 4.18 MIL/uL (4.20-5.40); RED CELL DISTRIBUTION WIDTH 13.7 % (11.6-13.7); WHITE BLOOD COUNT (AUTO) 7.4 K/uL (4.8-10.8)
[2023-05-03 06:58] LABS: ALANINE AMINOTRANSFERASE 30 U/L (12-78); ALBUMIN 3.3 g/dL (3.4-5.0); ALKALINE PHOSPHATASE 70 U/L (50-136); ANION GAP 10.3 (8-16); ASPARTATE AMINOTRANSFERASE 19 U/L (15-37); CALCIUM 8.3 mg/dL (8.5-10.1); CARBON DIOXIDE 28.7 mmol/L (21-32); CHLORIDE 107 mmol/L (98-107); CREATININE 0.5 mg/dL (0.6-1.3); GLUCOSE 120 mg/dL (74-106); SODIUM SERUM 143 mmol/L (136-145); TOTAL BILIRUBIN 0.5 mg/dL (0.0-1.0); TOTAL PROTEIN, SERUM 7.1 g/dL (6.4-8.2); UREA NITROGEN, BLOOD 10 mg/dL (7-18)
[2023-05-03] MEDS: PANTOPRAZOLE 40 MG TABEC PO SCH (08:30)
[2023-05-03 08:35] VITALS: BP 131/74; PULSE 94; RESP 18; TEMP 98.4; O2SAT 97
[2023-05-03 08:45] VITALS: PULSE 94; RESP 18; O2SAT 97
[2023-05-03] MEDS: POTASSIUM CHLORIDE 10 MEQ TABER PO PRN (09:10)
[2023-05-03 16:15] VITALS: BP 161/80; PULSE 78; RESP 18; TEMP 98.8; O2SAT 99
[2023-05-03 17:18] VITALS: BP 135/71; PULSE 103
[2023-05-03 20:00] VITALS: PULSE 92; RESP 17; O2SAT 94
[2023-05-04] MEDS: DEXT 5% /NACL 0.9% 1,000 ML IV SCH (02:50)
[2023-05-04 04:00] VITALS: BP 150/90; PULSE 77; RESP 18; TEMP 98.6; O2SAT 98
[2023-05-04 07:03] LABS: BASOPHILS % (AUTO) 0.3 % (0.0-2.0); EOSINOPHILS # (AUTO) 0.1 K/uL (0-0.4); EOSINOPHILS % (AUTO) 1.2 % (0.0-4.0); HEMATOCRIT 35.3 % (36-48); HEMOGLOBIN 11.9 g/dL (12.0-16.0); LYMPHOCYTES # (AUTO) 0.8 K/uL (2.5-16.5); LYMPHOCYTES % (AUTO) 15.1 % (20.5-51.1); MEAN CORPUSCULAR HEMOGLOBIN 32 pg (27-31); MEAN CORPUSCULAR HGB CONC 34 g/dL (33-37); MEAN CORPUSCULAR VOLUME 95.5 fL (80-94); MONOCYTES # (AUTO) 0.5 K/uL (0.8-1.0); MONOCYTES % (AUTO) 8.5 % (1.7-9.3); NEUTROPHILS % (AUTO) 74.9 % (42.2-75.2); PLATELET COUNT (AUTO) 193 K/uL (140-450); WHITE BLOOD COUNT (AUTO) 5.3 K/uL (4.8-10.8)
[2023-05-04 07:25] LABS: ALANINE AMINOTRANSFERASE 29 U/L (12-78); ALKALINE PHOSPHATASE 68 U/L (50-136); ANION GAP 11.3 (8-16); ASPARTATE AMINOTRANSFERASE 18 U/L (15-37); CALCIUM 8.5 mg/dL (8.5-10.1); CARBON DIOXIDE 26.6 mmol/L (21-32); CHLORIDE 109 mmol/L (98-107); CREATININE 0.8 mg/dL (0.6-1.3); GLUCOSE 109 mg/dL (74-106); POTASSIUM 3.9 mmol/L (3.5-5.1); SODIUM SERUM 143 mmol/L (136-145); TOTAL BILIRUBIN 0.5 mg/dL (0.0-1.0); TOTAL PROTEIN, SERUM 6.4 g/dL (6.4-8.2); UREA NITROGEN, BLOOD 12 mg/dL (7-18)
[2023-05-04] MEDS: PANTOPRAZOLE 40 MG TABEC PO SCH (08:12)
[2023-05-04 08:28] VITALS: BP 179/87; PULSE 85; RESP 18; TEMP 98.7; O2SAT 98
[2023-05-04] MEDS: hydrALAZINE 20 MG/ML VIAL IVP PRN (08:30)
[2023-05-04 08:36] VITALS: PULSE 85; RESP 18; O2SAT 98
[2023-05-04] MEDS: DOCUSATE SODIUM 100 MG GELCAP PO SCH (08:52)
[2023-05-04] MEDS: SENNA 8.6 MG TAB PO SCH (08:52)
[2023-05-04] MEDS: lisinopriL 10 MG TAB PO SCH (08:54)
[2023-05-04] MEDS: LEVOTHYROXINE 0.025 MG TAB PO SCH (08:55)
[2023-05-04] MEDS: POLYETHYLENE GLYCOL 17 GM/PKT PO SCH (08:55)
[2023-05-04 09:50] VITALS: BP 156/84; PULSE 96
[2023-05-04] MEDS: CARBIDOPA/LEVODOPA 25/100 MG 1 TAB PO SCH ×2 (12:08→17:17)
[2023-05-04 15:13] VITALS: BP 123/75; PULSE 91; RESP 18; TEMP 98.6; O2SAT 100
[2023-05-04 20:00] VITALS: BP 136/74; PULSE 84; RESP 18; TEMP 97.9; O2SAT 96
[2023-05-04] MEDS ORDERED: ATORVASTATIN 20 MG TAB PO SCH (21:00)
[2023-05-04] MEDS: DULoxetine 30 MG CAPDR PO SCH (22:51)
[2023-05-04] MEDS: HYDROcodone/APAP 7.5/325 MG 1 TAB PO PRN (23:06)
[2023-05-05 04:00] VITALS: BP 143/79; PULSE 79; RESP 18; TEMP 98; O2SAT 97
[2023-05-05] MEDS: LEVOTHYROXINE 0.025 MG TAB PO SCH (06:15)
[2023-05-05 08:00] VITALS: BP 184/98; PULSE 87; RESP 18; TEMP 98.5; O2SAT 97
[2023-05-05] MEDS: hydrALAZINE 20 MG/ML VIAL IVP PRN (08:10)
[2023-05-05] MEDS ORDERED: DULO30EC PO (08:13)
[2023-05-05] MEDS ORDERED: LISI10TA30 PO (08:13)
[2023-05-05] MEDS ORDERED: PANTOPRAZOLE 40 MG TABEC PO SCH (09:00)
[2023-05-05 09:15] VITALS: BP 127/72; PULSE 107; RESP 18; TEMP 98.8; O2SAT 94
[2023-05-05] MEDS: CARBIDOPA/LEVODOPA 25/100 MG 1 TAB PO SCH (11:20)
[2023-05-05] MEDS: SENNA 8.6 MG TAB PO SCH (11:21)
[2023-05-05] MEDS: DULoxetine 30 MG CAPDR PO SCH (11:21)
[2023-05-05] MEDS: DOCUSATE SODIUM 100 MG GELCAP PO SCH (11:21)
[2023-05-05] MEDS: POLYETHYLENE GLYCOL 17 GM/PKT PO SCH (11:22)
[2023-05-05] MEDS: lisinopriL 10 MG TAB PO SCH (11:22)
[2023-05-05] MEDS ORDERED: DULO60EC1 PO (21:54)
[2023-05-05] MEDS ORDERED: LISI-486 PO (21:54)
== END 2023-05-05 12:50 | DRG 57 ==
LOC: MED 18:24 → MTU 22:58
PROVIDERS: ADMIT Student in an Organized Health Care Education/Training Program; ATTEND Student in an Organized Health Care Education/Training Program
DX: G20.A1 Parkinson's disease without dyskinesia, without mention of fluctuations (principal); F02.80 Dementia in other diseases classified elsewhere, unspecified severity, without behavioral disturbance, psychotic disturbance, mood disturbance, and anxiety; E03.9 Hypothyroidism, unspecified; E11.9 Type 2 diabetes mellitus without complications; I10 Essential (primary) hypertension; E87.6 Hypokalemia; Z79.899 Other long term (current) drug therapy; M17.11 Unilateral primary osteoarthritis, right knee
CPT/HCPCS: 36415; 70450; 71250; 72125; 73562; 80048; 80053; 84484; 85025; 87081; 93005; 96361; 96374; 97112; 97116; 97530; 99285; J0360; J1644

== ENCOUNTER 2023-11-09 14:53 | Inpatient (IN) | payer OTHER ==
[~2023-11-09] VITALS: Ht 165.1 cm; Wt 61.2 kg
[2023-11-09 04:00] VITALS: BP 191/90; PULSE 90; RESP 16; TEMP 97; O2SAT 96
[~2023-11-09 14:53] MED LIST changes: +DULO30EC PO; +DULO60EC1 PO; -HYD2.5O TP; -IBUP-1842 PO; +LISI-486 PO; +LISI10TA30 PO; -LISI5TAB18 PO; -SULF-954 PO; -ZINC100T8 PO
[2023-11-09 15:00] VITALS: BP 140/100; PULSE 85; RESP 18; TEMP 98.3; O2SAT 95
[2023-11-09 15:20] VITALS: O2SAT 98
[2023-11-09] MEDS: NACL 0.9% 1,000 ML IV SCH ×2 (15:38→22:00)
[2023-11-09] MEDS ORDERED: cefTRIAXone 1,000 MG VIAL ONE (15:43)
[2023-11-09 15:47] LABS: BASOPHILS % (AUTO) 0.7 % (0.0-2.0); EOSINOPHILS % (AUTO) 0.9 % (0.0-4.0); HEMATOCRIT 43.8 % (36-48); HEMOGLOBIN 14.8 g/dL (12.0-16.0); LYMPHOCYTES # (AUTO) 0.6 K/uL (2.5-16.5); LYMPHOCYTES % (AUTO) 11.4 % (20.5-51.1); MEAN CORPUSCULAR HEMOGLOBIN 32 pg (27-31); MEAN CORPUSCULAR HGB CONC 34 g/dL (33-37); MEAN CORPUSCULAR VOLUME 95.2 fL (80-94); MONOCYTES # (AUTO) 0.3 K/uL (0.8-1.0); MONOCYTES % (AUTO) 6.5 % (1.7-9.3); NEUTROPHILS # (AUTO) 4.1 K/uL (1.8-7.7); NEUTROPHILS % (AUTO) 80.5 % (42.2-75.2); PLATELET COUNT (AUTO) 226 K/uL (140-450); RED CELL DISTRIBUTION WIDTH 13.6 % (11.6-13.7)
[2023-11-09] MEDS: cefTRIAXone 1,000 MG in DEXT 5% MINI-BAG PLUS 50 ML IV ONE (15:50)
[2023-11-09 15:55] LABS: ANION GAP 8.4 (8-16); CALCIUM 9.1 mg/dL (8.5-10.1); CARBON DIOXIDE 32.6 mmol/L (21-32); CHLORIDE 99 mmol/L (98-107); CREATININE 0.7 mg/dL (0.6-1.3); GLUCOSE 211 mg/dL (74-106); SODIUM SERUM 136 mmol/L (136-145); UREA NITROGEN, BLOOD 19 mg/dL (7-18)
[2023-11-09 16:13] LABS: LACTIC ACID 2.1 mmol/L (0.4-2.0)
[2023-11-09 16:29] LABS: APPEARANCE,URINE CLEAR (CLEAR); BILIRUBIN,URINE NEGATIVE (NEGATIVE); BLOOD, URINE NEGATIVE (NEGATIVE); COLOR,URINE YELLOW (YELLOW); LEUKOCYTE ESTERASE ,URINE TRACE (NEGATIVE); NITRITE, URINE NEGATIVE (NEGATIVE); PROTEIN,URINE NEGATIVE (NEGATIVE); UGLUCOSE NEGATIVE (NEGATIVE)
[2023-11-09 16:41] LABS: BACTERIA,URINE FEW /HPF (None Seen); RBC,URINE 0-5 /HPF (0-5); WBC,URINE 0-5 /HPF (0-5)
[2023-11-09 16:42] LABS: SQUAMOUS EPITHELIAL CELL,UR 0-3 (FEW) /LPF (0-3 (FEW))
[2023-11-09 17:10] VITALS: O2SAT 97
[2023-11-09] MEDS ORDERED: ZINC220C29 PO (17:40)
[2023-11-09] MEDS ORDERED: ACET-2214 PO (17:40)
[2023-11-09] MEDS ORDERED: TRAZ-466 PO (17:40)
[2023-11-09] MEDS ORDERED: LORA2SOL PO (17:40)
[2023-11-09] MEDS ORDERED: PANT40EC56 PO (17:40)
[2023-11-09] MEDS ORDERED: ZINC220T4 PO (17:40)
[2023-11-09] MEDS ORDERED: LEVO0.0211 PO (17:40)
[2023-11-09] MEDS ORDERED: SENN-74 PO (17:40)
[2023-11-09] MEDS ORDERED: LACT-191 PO (17:43)
[2023-11-09] MEDS ORDERED: MIRABULK PO (17:43)
[2023-11-09] MEDS ORDERED: NITR1PAT TD (17:43)
[2023-11-09] MEDS ORDERED: OXYC5TAB4 PO (17:43)
[2023-11-09 18:45] VITALS: O2SAT 97
[2023-11-09] MEDS ORDERED: HYOSCYAMINE SULFATE 0.125 MG PO SCH (18:50)
[2023-11-09] MEDS ORDERED: ACETAMINOPHEN 325 MG TAB PO PRN (18:50)
[2023-11-09] MEDS ORDERED: ONDANSETRON 4 MG/2 ML VIAL IVP PRN (18:50)
[2023-11-09] MEDS: ENALAPRILAT 2.5 MG/2 ML VIAL IVP ONE (19:23)
[2023-11-09 21:00] VITALS: BP 201/93; RESP 14; TEMP 97; O2SAT 98
[2023-11-09] MEDS: DULoxetine 30 MG CAPDR PO SCH (22:00)
[2023-11-09] MEDS: DOCUSATE SODIUM 100 MG GELCAP PO SCH (23:23)
[2023-11-10] MEDS: hydrALAZINE 20 MG/ML VIAL IVP PRN
[2023-11-10] MEDS: BENZOCAINE/MENTHOL 1 LOZ MM PRN (00:02)
[2023-11-10 02:08] VITALS: RESP 14; O2SAT 98
[2023-11-10 04:00] VITALS: BP 191/90; PULSE 90; RESP 16; TEMP 97; O2SAT 96
[2023-11-10] MEDS: CARBIDOPA/LEVODOPA 25/250 MG 1 TAB PO SCH (04:08)
[2023-11-10] MEDS: HYDROcodone/APAP 5/325 MG 1 TAB TAB PO PRN (04:26)
[2023-11-10 05:32] LABS: ANION GAP 10.8 (8-16); CALCIUM 8.4 mg/dL (8.5-10.1); CARBON DIOXIDE 30.6 mmol/L (21-32); CHLORIDE 103 mmol/L (98-107); CREATININE 0.6 mg/dL (0.6-1.3); GLUCOSE 119 mg/dL (74-106); POTASSIUM 3.4 mmol/L (3.5-5.1); SODIUM SERUM 141 mmol/L (136-145); UREA NITROGEN, BLOOD 11 mg/dL (7-18)
[2023-11-10 05:33] LABS: BASOPHILS % (AUTO) 0.2 % (0.0-2.0); EOSINOPHILS % (AUTO) 0.4 % (0.0-4.0); HEMATOCRIT 41.5 % (36-48); LYMPHOCYTES % (AUTO) 13.1 % (20.5-51.1); MEAN CORPUSCULAR HEMOGLOBIN 32 pg (27-31); MEAN CORPUSCULAR HGB CONC 34 g/dL (33-37); MEAN CORPUSCULAR VOLUME 94.7 fL (80-94); MONOCYTES # (AUTO) 0.4 K/uL (0.8-1.0); NEUTROPHILS # (AUTO) 6.4 K/uL (1.8-7.7); NEUTROPHILS % (AUTO) 81.3 % (42.2-75.2); PLATELET COUNT (AUTO) 233 K/uL (140-450); RED BLOOD CELL COUNT(AUTO) 4.38 MIL/uL (4.20-5.40); RED CELL DISTRIBUTION WIDTH 13.7 % (11.6-13.7); WHITE BLOOD COUNT (AUTO) 7.8 K/uL (4.8-10.8)
[2023-11-10] MEDS: LEVOTHYROXINE 0.025 MG TAB PO SCH (07:45)
[2023-11-10 08:00] VITALS: BP 152/77; PULSE 90; PULSE 96; RESP 18; TEMP 98; O2SAT 96
[2023-11-10] MEDS: ATORVASTATIN 20 MG TAB PO SCH (08:51)
[2023-11-10] MEDS: LOSARTAN 25 MG TAB PO SCH (08:52)
[2023-11-10] MEDS: PANTOPRAZOLE 40 MG TABEC PO SCH (08:52)
[2023-11-10] MEDS: lisinopriL 10 MG TAB PO SCH (08:52)
[2023-11-10] MEDS ORDERED: PANTOPRAZOLE 40 MG TABEC PO SCH (09:00)
[2023-11-10] MEDS ORDERED: LEVOTHYROXINE 0.025 MG TAB PO SCH (09:00)
[2023-11-10] MEDS: MEDS-TO-BEDS MC SCH (09:56)
[2023-11-10] MEDS: hydrALAZINE 25 MG TAB PO SCH (11:56)
[2023-11-10 16:00] VITALS: BP 156/84; PULSE 110; RESP 18; TEMP 98.2; O2SAT 99
[2023-11-10 20:00] VITALS: BP 158/84; PULSE 99; RESP 18; TEMP 98.7; O2SAT 96; O2SAT 98
[2023-11-11] MEDS: POTASSIUM CHLORIDE 20% 40 MEQ/15 ML UDC GT SCH (00:48)
[2023-11-11 04:00] VITALS: BP 135/71; PULSE 99; RESP 18; TEMP 97.9; O2SAT 98
[2023-11-11 05:57] LABS: BASOPHILS % (AUTO) 0.3 % (0.0-2.0); EOSINOPHILS % (AUTO) 0.2 % (0.0-4.0); HEMATOCRIT 36.8 % (36-48); HEMOGLOBIN 12.8 g/dL (12.0-16.0); LYMPHOCYTES # (AUTO) 0.8 K/uL (2.5-16.5); LYMPHOCYTES % (AUTO) 8.2 % (20.5-51.1); MEAN CORPUSCULAR HEMOGLOBIN 33 pg (27-31); MEAN CORPUSCULAR HGB CONC 35 g/dL (33-37); MEAN CORPUSCULAR VOLUME 93.7 fL (80-94); MONOCYTES # (AUTO) 0.8 K/uL (0.8-1.0); MONOCYTES % (AUTO) 8.4 % (1.7-9.3); NEUTROPHILS # (AUTO) 7.8 K/uL (1.8-7.7); NEUTROPHILS % (AUTO) 82.9 % (42.2-75.2); PLATELET COUNT (AUTO) 215 K/uL (140-450); RED BLOOD CELL COUNT(AUTO) 3.93 MIL/uL (4.20-5.40); WHITE BLOOD COUNT (AUTO) 9.4 K/uL (4.8-10.8)
[2023-11-11 06:55] LABS: ALANINE AMINOTRANSFERASE 8 U/L (12-78); ALBUMIN 3.6 g/dL (3.4-5.0); ALKALINE PHOSPHATASE 76 U/L (50-136); ANION GAP 11.4 (8-16); ASPARTATE AMINOTRANSFERASE 24 U/L (15-37); CALCIUM 8.5 mg/dL (8.5-10.1); CARBON DIOXIDE 27.2 mmol/L (21-32); CHLORIDE 103 mmol/L (98-107); CREATININE 0.5 mg/dL (0.6-1.3); GLUCOSE 123 mg/dL (74-106); POTASSIUM 3.6 mmol/L (3.5-5.1); SODIUM SERUM 138 mmol/L (136-145); TOTAL BILIRUBIN 0.5 mg/dL (0.0-1.0); TOTAL PROTEIN, SERUM 7.1 g/dL (6.4-8.2); UREA NITROGEN, BLOOD 10 mg/dL (7-18)
[2023-11-11 08:00] VITALS: BP 127/79; PULSE 97; PULSE 99; RESP 18; TEMP 98; O2SAT 100
[2023-11-11] MEDS: amLODIPine 5 MG TAB PO SCH (10:12)
[2023-11-11 18:00] VITALS: BP 147/80; PULSE 103; RESP 18; TEMP 98.2; O2SAT 96
[2023-11-11 20:00] VITALS: BP 140/76; PULSE 100; RESP 18; TEMP 98.5; O2SAT 97
[2023-11-11] MEDS: HYDRAGUARD CREAM TP ONE (23:49)
[2023-11-12 04:00] VITALS: BP 118/81; PULSE 100; RESP 18; TEMP 98.3; O2SAT 98
[2023-11-12 05:50] LABS: BASOPHILS % (AUTO) 0.3 % (0.0-2.0); EOSINOPHILS % (AUTO) 0.3 % (0.0-4.0); HEMATOCRIT 38.2 % (36-48); HEMOGLOBIN 13.2 g/dL (12.0-16.0); LYMPHOCYTES # (AUTO) 0.7 K/uL (2.5-16.5); LYMPHOCYTES % (AUTO) 9.4 % (20.5-51.1); MEAN CORPUSCULAR HEMOGLOBIN 33 pg (27-31); MEAN CORPUSCULAR HGB CONC 35 g/dL (33-37); MEAN CORPUSCULAR VOLUME 93.8 fL (80-94); MONOCYTES # (AUTO) 0.6 K/uL (0.8-1.0); MONOCYTES % (AUTO) 8.1 % (1.7-9.3); NEUTROPHILS # (AUTO) 5.9 K/uL (1.8-7.7); NEUTROPHILS % (AUTO) 81.9 % (42.2-75.2); PLATELET COUNT (AUTO) 203 K/uL (140-450); RED BLOOD CELL COUNT(AUTO) 4.07 MIL/uL (4.20-5.40); RED CELL DISTRIBUTION WIDTH 14.3 % (11.6-13.7); WHITE BLOOD COUNT (AUTO) 7.2 K/uL (4.8-10.8)
[2023-11-12 07:11] LABS: ALANINE AMINOTRANSFERASE 13 U/L (12-78); ALBUMIN 3.8 g/dL (3.4-5.0); ALKALINE PHOSPHATASE 66 U/L (50-136); ANION GAP 12.3 (8-16); ASPARTATE AMINOTRANSFERASE 29 U/L (15-37); CALCIUM 8.5 mg/dL (8.5-10.1); CARBON DIOXIDE 28.8 mmol/L (21-32); CHLORIDE 99 mmol/L (98-107); CREATININE 0.5 mg/dL (0.6-1.3); GLUCOSE 102 mg/dL (74-106); POTASSIUM 3.1 mmol/L (3.5-5.1); SODIUM SERUM 137 mmol/L (136-145); TOTAL BILIRUBIN 0.7 mg/dL (0.0-1.0); TOTAL PROTEIN, SERUM 7.4 g/dL (6.4-8.2); UREA NITROGEN, BLOOD 11 mg/dL (7-18)
[2023-11-12 08:00] VITALS: BP 140/76; PULSE 100; RESP 19; TEMP 98.5; O2SAT 97
[2023-11-12 08:22] VITALS: PULSE 98; RESP 20; O2SAT 99
[2023-11-12] MEDS ORDERED: POTASSIUM CHL 40 MEQ/ D5-1/2NS 1,000 ML IV SCH (11:25)
[2023-11-12] MEDS: POTASSIUM CHLORIDE 40 MEQ, LIDOCAINE 1% 25 MG in NACL 0.9% 250 ML IV SCH (13:06)
[2023-11-12 15:42] VITALS: BP 118/81; PULSE 100; RESP 18; TEMP 98.3; O2SAT 98
== END 2023-11-12 15:55 | DRG 640 ==
LOC: MED 14:53 → MMU 18:47 → MTU 20:07
PROVIDERS: ADMIT Student in an Organized Health Care Education/Training Program; ATTEND Student in an Organized Health Care Education/Training Program
DX: E87.6 Hypokalemia (principal); G93.41 Metabolic encephalopathy; N39.0 Urinary tract infection, site not specified; E44.0 Moderate protein-calorie malnutrition; I16.9 Hypertensive crisis, unspecified; F03.90 Unspecified dementia, unspecified severity, without behavioral disturbance, psychotic disturbance, mood disturbance, and anxiety; E03.9 Hypothyroidism, unspecified; F32.A Depression, unspecified; I10 Essential (primary) hypertension; Z68.22 Body mass index [BMI] 22.0-22.9, adult
CPT/HCPCS: 36415; 70450; 71045; 80048; 80053; 81001; 83605; 83735; 83880; 84436; 84443; 84484; 85025; 87040; 87081; 87086; 93005; 96365; 97110; 97112; 97163-GP; 97530; 99285; J0360; J0696; J2001; J3480; J3490; J7030; J7060